=== PATIENT | female | born 1990 | race Caucasian/White ===

== ENCOUNTER 2016-11-19 12:03 | Emergency (ER) | payer MEDICAID ==
[~2016-11-19] VITALS: Ht 172.7 cm; Wt 78.1 kg
[~2016-11-19 12:03] MED LIST: MULT-261 PO
[2016-11-19 12:05] VITALS: Ht 172.7 cm; Wt 78.1 kg
--- NOTE | 2016-11-19 12:29 | ERPDOC ---
Departure Disposition Decision Date: Nov 19, 2016 Disposition Decision Time: 13:10 Disposition: 01 DISCHARGED HOME, SELF-CARE Impression Impression Impression: Primary Impression: Tonsillitis with exudate Severity: Moderate Condition: Stable Seen By: Physician only Referrals: DOLLY DIOP (PCP) 1 Week Patient Instructions: Tonsillitis (ED) Problems/Meds/Labs Reviewed?: Yes Medications reviewed and manag: Yes Additional Instructions: Home to rest today, push fluids. Start antibiotics as directed. If throat is very sore, suck on ice or popsicles and let the fluid trickle down your throat - - the cold will reduce swelling and pain associated with the tonsils. Tylenol or Ibuprofen or Aleve (lasts longer -- only have to swallow it twice daily) for pain as needed.May supplement with Tylenol with Codeine syrup as needed for severe pain. Do not return to work until afebrile for at least 24 hours. Departure Forms: Return to Work/School Permit Return to Work/School Date: Nov 21, 2016 Follow up care ordered?: Yes Mental Status: Alert, Oriented Scripts Acetaminophen with Codeine (Acetamin-Codein 300-30 mg/12.5) 12.5 Ml Solution 12.5-25 ML PO Q6H Y for PAIN, #400 ML 0 Refills Prov: JON GARVIN MD 11/19/16 Amoxicillin (Amoxicillin) 400 Mg/5 Ml Susp.recon 2.5 TSP PO BID for 7 Days, BOTTLE 0 Refills Prov: JON GARVIN MD 11/19/16 HPI General Chief Complaint: Throat Pain/Injury Stated Complaint: SORE THROAT, BLISTERS, & BODYACHES Time Seen by Provider: 12:17 Source: patient, RN notes reviewed, old records Exam Limitations: no limitations HPI Dental Initial Comments This patient presents to the ER complaining of a sore throat that started yesterday. She had a feer up to 102 and has a history of strep. 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 SHe did not have a flu shot this season. She also has body aches and fatigue. She did not go to work yesterday. Occurred At: home Onset: Rapid Duration: 12-24 hrs Pain Scale: Now: 8/10 Severity: severe Associated Symptoms: fever, trouble swallowing, DENIES: cough, diarrhea, drooling, dyspnea, facial swelling, headache, hoarseness, nausea, rhinorrhea, sinus drainage, sinus pain, vomiting Allergies: Coded Allergies: No Known Allergies (Unverified , 11/19/16) Past History Past Medical History Female: (7), miscarriage (2), para (4) Neurological: migraines Infectious: other (HSV, group B Strep with ) Surgical History General: gallbladder Reproductive/: tubal ligation Vaccines Hx Influenza Vaccination: Yes (09/29/14) Hx Pneumococcal Vaccination: No Hx Tetanus Diptheria: No Hx Tetanus, Diptheria, Pertuss: Yes (03/12/15) Social History Does patient use chewing tobac: No # of Packs/Tins per Day: 0.1 # of Years: 4 Sexuality: male partner Review of Systems Constitutional Constitutional: appetite decrease, chills, fever, DENIES: dizziness, weakness Eyes General: DENIES: pain Lids/Accessories: DENIES: erythema Vision: DENIES: blurring ENMT Ears: DENIES: pain Hearing: DENIES: hearing loss Balance: DENIES: vertigo Sinuses: DENIES: congestion, rhinorrhea Mouth/Throat: blisters, painful swallowing, sore throat, DENIES: change in voice, drooling Teeth: DENIES: pain Cardiovascular Cardiac: DENIES: chest pain Rhythm/Rate: DENIES: palpitations Vascular: DENIES: pedal edema, unilateral swelling Pulmonary Respiratory: DENIES: cough, dyspnea, sputum GI Upper Abdomen: DENIES: heartburn/indigestion, nausea, vomiting Lower Abdomen: DENIES: blood in stool, constipation, diarrhea General: DENIES: dysuria, hematuria Female: LMP (one week ago) Musculoskeletal General: DENIES: joint pain, pain Integumentary Skin: DENIES: itching, rash Neurological General: DENIES: headache, memory disturbances, seizures, syncope Psychiatric Psychiatric: DENIES: anxiety, depression Endocrine Endocrine: DENIES: heat/cold intolerance Hematologic/Lymphatic Hematologic/Lymphatic: DENIES: anemia, easy bruising Allergic/Immunological Allergic/Immunoligical: DENIES: hives All other Systems All Other Systems: Reviewed and Negative Exam General General Nourishment: well nourished, well developed, appears stated age, no acute distress General Body Habitus: well groomed Vital Signs: RN Vital Signs have been reviewed: Yes, Temperature: 98.0, Source : Oral, Heart Rate: 120, Respiratory Rate: 18, BP: 145/83, Pulse Oximetry: 98 Height (Feet): 5 Height (Inches): 8.00 [facility] Dental Face: NOT FOUND: asymmetry, bruising, erythema, swelling, tender Jaw: NOT FOUND: asymmetry, trismus Glands: NOT FOUND: L parotid swollen, L submandibular swollen, R parotid swollen, R submandibular swollen Ducts: NOT FOUND: L Stensen's blocked, L Stensen's inflamed, L [place]'s blocked, L [place]'s inflamed, R Stensen's inflamed, R [place]'s blocked, R [place]'s inflamed Lips: NOT FOUDN: laceration, swelling Gums: moist, pink, NOT FOUND: swelling Tongue: NOT FOUND: swelling Teeth: NOT FOUND: caries Pharynx: erythema, exudate, swelling, NOT FOUND: lateral pillar signs, uvular deviation Tonsils: 3+, erythema, exudate, NOT FOUND: deviation, peritonsillar swelling Neck: L anterior adenopathy, R anterior adenopathy, NOT FOUND: L posterior adenopathy, R posterior adenopathy Skin: NOT FOUND: rash Neck (brief) Comments tenderness posteriorly in the paracervical muscles, no adenopathy Abdomen (brief) Abdominal Brief: FOUND: bowel normo active x4, NOT FOUND: hepatosplenomegaly, soft, tender Neurologic RN Documented GCS Eye Opening: Verbal: Motor: Total: Differential Diagnoses Considering: Pharyngitis Strep, Other (influenza, mono, viral syndrome, tonsillitis) Progress Results/Orders Orders Procedure Category Date Status Time Cbc W/Auto LAB 11/19/16 Complete Diff-Reflex Manual 12:17 Monotest LAB 11/19/16 Complete 12:17 Strep A Antigen Screen LAB 11/19/16 Complete 12:17 Iv Lock (Ed Only) EDM 11/19/16 Transmitted 12:17 Normal Saline (Normal PHA 11/19/16 Complete Saline Iv) 12:30 Influenza A/B Screen LAB 11/19/16 Complete 12:17 Ketorolac (Toradol) PHA 11/19/16 Complete 12:30 Group A Strep Culture JANETTE 11/19/16 In Process 12:50 Lab Results Laboratory Tests Test 11/19/16 12:33 11/19/16 12:35 11/19/16 12:36 Influenza Type A Antigen Negative Influenza Type B Antigen Negative Group A Streptococcus Screen Negative Monoscreen Negative White Blood Count 13.4T/MM3 Red Blood Count 4.60M/MM3 Hemoglobin 13.4GM/DL Hematocrit 41.6% Mean Corpuscular Volume 90.4UM3 Mean Corpuscular Hemoglobin 29.1UUG Mean Corpuscular Hemoglobin Concent 32.2GM/DL RDW Standard Deviation 41.5FL Platelet Count 230T/MM3 Mean Platelet Volume 8.7UM3 Immature Granulocyte % (Auto) 0.3% Neutrophils (%) (Auto) 81.0% Lymphocytes (%) (Auto) 12.5% Monocytes (%) (Auto) 5.4% Eosinophils (%) (Auto) 0.7% Basophils (%) (Auto) 0.1% Absolute Immature Granulocyte (auto 0.04T/MM3 Absolute Neutrophils (auto) 10.9T/MM3 Absolute Lymphocytes (auto) 1.7T/MM3 Absolute Monocytes (auto) 0.7T/MM3 Absolute Eosinophils (auto) 0.1T/MM3 Absolute Basophils (auto) 0.0T/MM3 Medications Current ED Medications Sodium Chloride (Normal Saline IV) 1,000 ml @ 0 mls/hr Q0M ONCE IV Last administered on 11/19/16 12:37; Start 11/19/16 at 12:30; Stop 11/19/16 at 12:31; Status DC Ketorolac Tromethamine (Toradol) 30 mg O ONCE IV Last administered on 12:38; Start 11/19/16 at 12:30; Stop 11/19/16 at 12:31; Status DC Progress Progress Strep is negative as are the influenza screens and monospot, however she has an elevated white count with a left shift, as well as the exudate on the tonsils, so will treat as bacterial illness. Tachycardia resolved with IV fluids and pain control. Work note written. JON GARVIN MD Nov 19, 2016 12:29 JON GARVIN MD Nov 19, 2016 12:29
[2016-11-19] MEDS ORDERED: NORMAL SALINE 1,000 ML IV ONE (12:30)
[2016-11-19] MEDS ORDERED: KETOROLAC 30mg/ml INJECTION IV ONE (12:30)
[2016-11-19] MEDS ORDERED: CLON0.5T4 PO (12:32)
[2016-11-19] MEDS ORDERED: SERT100T12 PO (12:32)
[2016-11-19] MEDS ORDERED: SUMA50TA18 PO (12:32)
[2016-11-19] MEDS ORDERED: IBUP-1724 PO (12:34)
[2016-11-19] MEDS ORDERED: ACET-62 PO (12:34)
[2016-11-19 12:54] LABS: BASOPHILS % (AUTO) 0.1 % (0-2); EOSINOPHILS # (AUTO) 0.1 T/MM3 (0-0.5); EOSINOPHILS % (AUTO) 0.7 % (0-4); HCT - HEMATOCRIT 41.6 % (36-46); HGB - HEMOGLOBIN 13.4 GM/DL (12-16); IMMATURE GRANULOCYTE # (AUTO) 0.04 T/MM3 (0.00-0.03); IMMATURE GRANULOCYTE % (AUTO) 0.3 % (0.0-0.5); LYMPHOCYTES # (AUTO) 1.7 T/MM3 (1-4.8); LYMPHOCYTES % (AUTO) 12.5 % (23-45); MEAN CORPUSCULAR HGB 29.1 UUG (26-34); MEAN CORPUSCULAR HGB CONC(MCHC 32.2 GM/DL (31-37); MEAN CORPUSCULAR VOLUME 90.4 UM3 (80-100); MEAN PLATELET VOLUME 8.7 UM3 (9.4-12.4); MONOCYTES # (AUTO) 0.7 T/MM3 (0-0.8); MONOCYTES % (AUTO) 5.4 % (0-9.0); NEUTROPHILS #(AUTO)-ABSOLUTE 10.9 T/MM3 (1.8-7.7); WBC - WHITE BLOOD COUNT 13.4 T/MM3 (4.5-11.0)
[2016-11-19 13:06] LABS: INFLUENZA A AG SCREEN NEGATIVE (NEGATIVE); INFLUENZA B AG SCREEN NEGATIVE (NEGATIVE)
[2016-11-19 13:08] LABS: MONOTEST NEGATIVE (NEGATIVE)
[2016-11-19] MEDS ORDERED: ACET12.53 PO (13:25)
[2016-11-19] MEDS ORDERED: AMOX400S5 PO (13:25)
[2016-11-19 13:48] VITALS: BP 110/53; PULSE 106; RESP 18; TEMP 98.3; O2SAT 98
== END 2016-11-19 13:48 | disposition home or self-care (01) ==
LOC: ED 12:03
DX: J03.90 Acute tonsillitis, unspecified (principal); Z87.891 Personal history of nicotine dependence
CPT/HCPCS: 85025; 86308; 87081; 87400; 87430; 96361; 96374; 99284; J1885; J7030